=== PATIENT | female | born 2000 | race Caucasian/White ===

== ENCOUNTER 2020-04-06 16:33 | Observation (INO) | payer BC ==
[2020-04-06] VITALS (9 sets, daily range): BP systolic 92–116; BP diastolic 53–83; PULSE 76–98; TEMP 98.1–98.6
--- NOTE | 2020-04-06 16:30 | NUR ---
Patient ambulatory onto unit from radiology escorted by Merry ORDONEZ. Patient being admitted for laparoscopic appendectomy. Dr.Henry Rivera will be over to evaluate patient soon. INT in left AC from radiology. VS taken. Assessment B completed. Consent signed.
--- NOTE | 2020-04-06 16:40 | NUR ---
at bedside to evaluate patient. Plan of care discussed regarding surgery. Questions answered for patient by provider.
--- NOTE | 2020-04-06 17:15 | NUR ---
Report to Sofiya ORDONEZ at this time. Patient to OR.
[2020-04-07 02:30] VITALS: BP 90/45; PULSE 64; TEMP 97.5
[2020-04-07] MEDS ORDERED: ULTRAM 50MG TAB50 MG PO (07:55)
[2020-04-07 08:02] VITALS: BP 112/54; PULSE 63; TEMP 97.6
--- NOTE | 2020-04-07 09:50 | NUR ---
Initial visit attempt; Patient sleeping, [employer] [employer] [facility] left card offering God's blessings and information regarding the availability of spiritual care at [place].
--- NOTE | 2020-04-07 12:00 | NUR ---
Discharge instructions given to pt and Dad. INT's removed. Pt verbalizes understanding, and questions answered. 1220:Pt taken to personal vehicle via wheelchair.
== END 2020-04-07 12:20 | disposition home or self-care (01) ==
LOC: SDCO 16:33 → OB 19:00 → SDCO 19:01 → OB 19:01
PROVIDERS: ADMIT Surgery
DX: K35.80 Unspecified acute appendicitis (principal)
CPT/HCPCS: OP; J0330; J1100; J1885; J2250; J2405; J2704; J3010; J7120; Q9967

== ENCOUNTER 2021-07-10 10:14 | Emergency (ER) | payer BC ==
[~2021-07-10] VITALS: Ht 160 cm; Wt 56.8 kg
[~2021-07-10 10:14] MED LIST: ULTRAM 50MG TAB50 MG PO
[2021-07-10 10:31] VITALS: TEMP 97.5
[2021-07-10 10:41] LABS: COLLECTION METHOD CLEAN CATCH
[2021-07-10 10:50] LABS: BASO % 0.5 % (0.0-2.0); EOS # 0.2 K/mm3 (0.0-0.7); EOS % 2.3 % (0.0-4.0); GRAN # 2.9 K/mm3 (1.4-6.5); GRAN % 39.5 % (42.2-75.2); HEMATOCRIT 38.9 % (37.0-47.0); HEMOGLOBIN 12.9 g/dl (12.5-16.0); LYMPH # 3.4 K/mm3 (1.2-3.4); MEAN CELL VOLUME 87 fl (80.0-100.0); MEAN CORPUSCULAR HEMOGLOBIN 29 pg (27-31); MEAN CORPUSCULAR HGB CONC 33 g/dl (33.0-37.0); MEAN PLATELET VOLUME 10.9 fl (7.4-10.4); MONO # 0.8 K/mm3 (0.1-0.6); MONO % 11.4 % (1.7-9.3); PLATELET COUNT 235 K/mm3 (130-400); RED BLOOD COUNT 4.48 M/mm3 (4.10-5.30); REDCELL DISTRIBUTION WIDTH-CV 12.3 % (11.5-14.5)
[2021-07-10 10:59] LABS: ALBUMIN 4.3 gm/dL (3.5-5.0); CALCIUM 9.1 mg/dL (8.4-10.2); POTASSIUM 3.5 mmol/L (3.5-4.5); TOTAL PROTEIN 7.5 gm/dL (6.2-8.1)
[2021-07-10 11:23] LABS: MUCOUS Present (NOT PRESENT); PH 5 (5-8); URINE APPEARANCE Cloudy (CLEAR/HAZY); URINE BACTERIA None Seen /hpf (NONE SEEN); URINE BILIRUBIN Negative (NEGATIVE); URINE BLOOD 3+ (NEGATIVE); URINE COLOR Yellow (YELLOW); URINE GLUCOSE Negative (NEGATIVE); URINE KETONE Trace (NEGATIVE); URINE LEUKOCYTE ESTERASE Negative (NEGATIVE); URINE NITRATE Negative (NEGATIVE); URINE PROTEIN(semi-quant) 1+ (NEGATIVE); URINE RBC >50 /hpf (0-2); URINE UROBILINOGEN Negative (NEGATIVE)
[2021-07-10 12:18] VITALS: BP 104/67; PULSE 81
[2021-07-10] MEDS ORDERED: ZOFRAN ODT4 MG PO (12:25)
[2021-07-10] MEDS ORDERED: NORCO 325 MG-51 TAB PO (12:25)
[2021-07-10] MEDS ORDERED: FLOMAX 0.40.4 MG/CAP PO (12:25)
== END 2021-07-10 12:34 | disposition home or self-care (01) ==
LOC: COL.ER 10:14
PROVIDERS: Emergency Medicine
DX: N13.2 Hydronephrosis with renal and ureteral calculous obstruction (principal); Z32.02 Encounter for pregnancy test, result negative
CPT/HCPCS: J1885; J2405; J3010; J7120; Q9967

== ENCOUNTER 2021-07-15 09:44 | Observation (INO) | payer BC ==
[~2021-07-15] VITALS: Ht 160 cm; Wt 56.8 kg
[2021-07-15] VITALS (7 sets, daily range): BP systolic 105–115; BP diastolic 58–76; PULSE 58–71; TEMP 97.9–98
[~2021-07-15 09:44] MED LIST changes: +FLOMAX 0.40.4 MG/CAP PO; +NORCO 325 MG-51 TAB PO; +ZOFRAN ODT4 MG PO
[2021-07-15 10:01] LABS: COLLECTION METHOD CLEAN CATCH
[2021-07-15 10:17] LABS: MUCOUS Present (NOT PRESENT); PH 5 (5-8); URINE APPEARANCE Hazy (CLEAR/HAZY); URINE BACTERIA None Seen /hpf (NONE SEEN); URINE BILIRUBIN Negative (NEGATIVE); URINE BLOOD 3+ (NEGATIVE); URINE COLOR Yellow (YELLOW); URINE GLUCOSE Negative (NEGATIVE); URINE KETONE Negative (NEGATIVE); URINE LEUKOCYTE ESTERASE Trace (NEGATIVE); URINE NITRATE Negative (NEGATIVE); URINE PROTEIN(semi-quant) 1+ (NEGATIVE); URINE RBC >50 /hpf (0-2); URINE UROBILINOGEN Negative (NEGATIVE)
[2021-07-15 10:49] LABS: BASO % 0.6 % (0.0-2.0); EOS # 0.1 K/mm3 (0.0-0.7); EOS % 1.5 % (0.0-4.0); GRAN # 2.7 K/mm3 (1.4-6.5); GRAN % 51.1 % (42.2-75.2); HEMATOCRIT 39.1 % (37.0-47.0); HEMOGLOBIN 12.7 g/dl (12.5-16.0); LYMPH # 1.7 K/mm3 (1.2-3.4); LYMPH % 32.9 % (20.0-51.0); MEAN CELL VOLUME 89 fl (80.0-100.0); MEAN CORPUSCULAR HEMOGLOBIN 29 pg (27-31); MEAN CORPUSCULAR HGB CONC 33 g/dl (33.0-37.0); MEAN PLATELET VOLUME 10.9 fl (7.4-10.4); MONO # 0.7 K/mm3 (0.1-0.6); MONO % 13.7 % (1.7-9.3); PLATELET COUNT 201 K/mm3 (130-400); REDCELL DISTRIBUTION WIDTH-CV 12.4 % (11.5-14.5)
[2021-07-15 11:06] LABS: ALBUMIN 4.1 gm/dL (3.5-5.0); BILIRUBIN,TOTAL 0.9 mg/dL (0.2-1.2); CALCIUM 8.9 mg/dL (8.4-10.2); CREATININE, serum 0.89 mg/dL (0.57-1.11); POTASSIUM 3.9 mmol/L (3.5-4.5)
--- NOTE | 2021-07-15 14:19 | NUR ---
PATIENT SETTLED TO ROOM 329. PATIENT IS ALERT AND ORIENTED. LUNGS CTA. BOWEL SOUNDS AUDIBLE BUT HYPOACTIVE. PATIENT VOIDED UPON ARRIVAL WITH THE AMOUNT OF 300ML WITH A REDDISH COLOR. STENT VISUALIZED. TAPED TO LEFT THIGH UNDER TEGADERM. PATIENT ORIENTED TO ROOM. VSS. CALL LIGHT WITHIN REACH.
--- NOTE | 2021-07-15 17:25 | NUR ---
PATIENT'S IV DC'D. DISCHARGE INSTRUCTIONS REVIEWED. PATIENT DENIES ANY QUESTIONS OR CONCERNS AT THIS TIME. ESCORTED OUT VIA WHEELCHAIR WITH BOYFRIEND.
== END 2021-07-15 17:25 | disposition home or self-care (01) ==
LOC: COL.ER 09:44 → INPTSU 11:24 → COL.ER 12:18 → SURG 14:10
PROVIDERS: Family Medicine; Nurse Practitioner Primary Care; ADMIT Urology
DX: N20.1 Calculus of ureter (principal); L70.9 Acne, unspecified; Z79.899 Other long term (current) drug therapy
CPT/HCPCS: C1769; C2617; G0378; J0690; J1100; J1170; J1885; J2405; J2550; J2704; J3010; J7030; Q9967

== ENCOUNTER 2021-12-13 05:01 | Emergency (ER) | payer BC ==
[~2021-12-13] VITALS: Ht 162.6 cm; Wt 59.1 kg
[2021-12-13 05:10] VITALS: TEMP 98
[2021-12-13 05:37] LABS: BASO % 0.2 % (0.0-2.0); EOS % 0.1 % (0.0-4.0); GRAN # 8.9 K/mm3 (1.4-6.5); GRAN % 73.6 % (42.2-75.2); HEMATOCRIT 43.1 % (37.0-47.0); HEMOGLOBIN 14.5 g/dl (12.5-16.0); LYMPH # 2.3 K/mm3 (1.2-3.4); MEAN CELL VOLUME 85 fl (80.0-100.0); MEAN CORPUSCULAR HEMOGLOBIN 29 pg (27-31); MEAN CORPUSCULAR HGB CONC 34 g/dl (33.0-37.0); MONO # 0.8 K/mm3 (0.1-0.6); MONO % 6.7 % (1.7-9.3); PLATELET COUNT 250 K/mm3 (130-400); RED BLOOD COUNT 5.05 M/mm3 (4.10-5.30); REDCELL DISTRIBUTION WIDTH-CV 12.8 % (11.5-14.5)
[2021-12-13] MEDS ORDERED: ALDACTONE 25MG25 M1 (05:44)
[2021-12-13 05:53] LABS: ALBUMIN 4.7 gm/dL (3.5-5.0); BILIRUBIN,TOTAL 0.9 mg/dL (0.2-1.2); CALCIUM 9.7 mg/dL (8.4-10.2); CREATININE, serum 1.04 mg/dL (0.57-1.11); POTASSIUM 4.1 mmol/L (3.5-4.5); TOTAL PROTEIN 8.6 gm/dL (6.2-8.1)
[2021-12-13 05:55] LABS: COLLECTION METHOD CLEAN CATCH
[2021-12-13 06:08] LABS: MUCOUS Present (NOT PRESENT); URINE BACTERIA None Seen /hpf (NONE SEEN); URINE RBC >50 /hpf (0-2)
[2021-12-13 06:09] LABS: PH 5 (5-8); URINE APPEARANCE Turbid (CLEAR/HAZY); URINE COLOR Yellow (YELLOW)
[2021-12-13 06:10] LABS: URINE BILIRUBIN Negative (NEGATIVE); URINE BLOOD 2+ (NEGATIVE); URINE GLUCOSE Negative (NEGATIVE); URINE KETONE Trace (NEGATIVE); URINE LEUKOCYTE ESTERASE Negative (NEGATIVE); URINE NITRATE Negative (NEGATIVE); URINE PROTEIN(semi-quant) Negative (NEGATIVE); URINE UROBILINOGEN Negative (NEGATIVE)
[2021-12-13] MEDS ORDERED: FLOMAX 0.40.4 MG/CAP PO (06:34)
[2021-12-13] MEDS ORDERED: ZOFRAN ODT4 MG PO (06:34)
[2021-12-13] MEDS ORDERED: PERCOCET 325 MG1 TA2 PO (06:34)
[2021-12-13 08:14] VITALS: BP 113/69; PULSE 73
== END 2021-12-13 08:15 | disposition home or self-care (01) ==
LOC: COL.ER 05:01
PROVIDERS: Personal Emergency Response Attendant
DX: N20.0 Calculus of kidney (principal); Z98.890 Other specified postprocedural states; Z32.02 Encounter for pregnancy test, result negative
CPT/HCPCS: J1170; J1885; J2405; J7030

== ENCOUNTER 2022-04-17 02:24 | Emergency (ER) | payer BC ==
[~2022-04-17] VITALS: Ht 160 cm; Wt 56.8 kg
[~2022-04-17 02:24] MED LIST changes: +ALDACTONE 25MG25 M1; +PERCOCET 325 MG1 TA2 PO
[2022-04-17 02:29] VITALS: TEMP 102.6
[2022-04-17 03:39] LABS: STREP SCREEN NEGATIVE
[2022-04-17 03:50] LABS: MONOSCREEN NEGATIVE
[2022-04-17 04:02] VITALS: BP 113/83; PULSE 105
[2022-04-17] MEDS ORDERED: AMOXICILLIN 50500 MG PO (04:03)
== END 2022-04-17 04:20 | disposition home or self-care (01) ==
LOC: COL.ER 02:24
PROVIDERS: Emergency Medicine
DX: J02.9 Acute pharyngitis, unspecified (principal); Z20.822 Contact with and (suspected) exposure to COVID-19